=== PATIENT | male | born 1955 | race African-American/Black ===

== ENCOUNTER → 2018-06-23 | Outpatient (CLI) | payer MEDICARE ==
[~2018-06-23] MED LIST: ALLOPURINOL300 MG PO; CITALOPRAM HBR20 MG PO; CRESTOR10 MG; CYMBALTA30 MG; HYDROCHLOROTHIA25 MG; ISOSORBIDE MONO20 MG PO; LASIX40 MG PO; LISINOPRIL10 MG PO; LOPRESSOR25 MG PO; NEURONTIN400 MG; OMEPRAZOLE40 MG; SPIRONOLACTONE25 MG PO; WARFARIN SODIUM3 MG PO
== END ==
LOC: MRI 16:04
PROVIDERS: ATTEND Podiatrist Foot & Ankle Surgery
DX: M79.672 Pain in left foot (principal); M79.89 Other specified soft tissue disorders; S90.32XA Contusion of left foot, initial encounter